=== PATIENT | female | born 1950 | race Caucasian/White ===

== ENCOUNTER 2017-02-27 18:14 | Emergency (ER) | payer OTHER ==
[2017-02-27 18:30] VITALS: BP 136/85
--- NOTE | 2017-02-27 18:31 | UC ---
Skin Complaint HPI - HPI Summary HPI Summary: Tick on her left inner thigh was likely attached 24-36 hours Tick removed yesterday intact--some bleeding - History of Current Complaint Chief Complaint: UCSkin Time Seen by Provider: 02/27/17 18:25 Stated Complaint: TICK Hx Obtained From: Patient ?: No Onset/Duration: Sudden Onset, Lasting Days, Still Present Skin Exposure Onset/Duration: Days Ago - 1-2 Timing: Constant Onset Severity: Mild Current Severity: None Pain Intensity: 0 Pain Scale Used: 0-10 Numeric Location: Discrete - inner left thigh Aggravating: Nothing Alleviating: Nothing Associated Signs & Symptoms: Positive: Negative Related History: Insect Bite/Sting - Allergy/Home Medications Allergies/Adverse Reactions: Allergies Allergy/AdvReac Type Severity Reaction Status Date / Time latex Allergy Severe Rash Uncoded 04/09/15 15:45 Home Medications: Home Medications [place] 150 mg PO 02/27/17 [History] Review of Systems Constitutional: Negative Skin: Negative Eyes: Negative ENT: Negative Respiratory: Negative Cardiovascular: Negative Gastrointestinal: Negative Genitourinary: Negative Motor: Negative Neurovascular: Negative Musculoskeletal: Negative Neurological: Negative Psychological: Negative All Other Systems Reviewed And Are Negative: Yes PMH/Surg Hx/FS Hx/Imm Hx Previously Healthy: Yes - Surgical History Surgical History: Yes Surgery Procedure, Year, and Place: Lumpectomy - Family History Known Family History: Positive: None Family History: no cardiovascular issues reported in family lineage - Social History Occupation: Retired Lives: With Family Alcohol Use: Rare Substance Use Type: None Smoking Status (MU): Never Smoked Tobacco Physical Exam Triage Information Reviewed: Yes Appearance: Well-Appearing, No Pain Distress, Well-Nourished Vital Signs: Initial Vital Signs Temp 99.1 F 02/27/17 18:16 Pulse 72 02/27/17 18:16 Resp 18 02/27/17 18:16 BP 136/85 02/27/17 18:16 Pulse Ox 98 02/27/17 18:16 Vital Signs Reviewed: Yes Eye Exam: Normal Eyes: Positive: Conjunctiva Clear ENT Exam: Normal ENT: Positive: Normal ENT inspection, Hearing grossly normal, Pharynx normal, TMs normal. Negative: Nasal congestion, Nasal drainage, Tonsillar swelling, Tonsillar exudate, Trismus, Muffled/hoarse voice Dental Exam: Normal Neck exam: Normal Neck: Positive: Supple, Nontender Respiratory Exam: Normal Respiratory: Positive: Chest non-tender, No respiratory distress, No accessory muscle use Cardiovascular Exam: Normal Cardiovascular: Positive: RRR, No Murmur, Pulses Normal, Brisk Capillary Refill Musculoskeletal Exam: Normal Musculoskeletal: Positive: Strength Intact, ROM Intact, No Edema Neurological Exam: Normal Neurological: Positive: Alert, Muscle Tone Normal Psychological Exam: Normal Skin Exam: Other Skin: Positive: Other - erythema at Tick site inner left thigh Course/Dx - Course Course Of Treatment: Doxycycline, soap and water wash, follow with pcp prn - Differential Diagnoses - Skin Complaint Differential Diagnoses: Contact Dermatitis, Impetigo, Tick Born Illness - Diagnoses Provider Diagnoses: Tick bite Lyme PEP Discharge - Discharge Plan Condition: Stable Disposition: HOME Prescriptions: DOXYcycline CAP(*) [DOXYcycline 100MG CAP(*)] 200 mg PO DAILY #2 cap Patient Education Materials: Doxycycline (By mouth), Tick Bite (ED) Referrals: Trey Mathew MD [Primary Care Provider] - If Needed
== END 2017-02-27 18:37 | disposition home or self-care (01) ==
LOC: UCEAST 18:14
DX: S70.362A Insect bite (nonvenomous), left thigh, initial encounter (principal); W57.XXXA Bitten or stung by nonvenomous insect and other nonvenomous arthropods, initial encounter; Z91.040 Latex allergy status
CPT/HCPCS: 99212; G0463

== ENCOUNTER 2017-10-25 16:18 | Emergency (ER) | payer OTHER ==
[2017-10-25 16:56] VITALS: BP 129/86
--- NOTE | 2017-10-25 17:39 | UC ---
UC General HPI - HPI Summary HPI Summary: 67 y/o female with concerns after accupuncturist told her she may have B vitamin deficiency due to fissures noted on her tongue. Patient started to take B vitamins over the counter, but is concerned about dosage. ALso, had 3 episodes of loose stool in beginning of august, which resolved, no abdominal pain, cramping, bloating, also noted 3 episodes of loose stool, one every other day for past 3-4 days, no abdominal pain, cramping, blaoting, no N/V. no PMH. + partial vegan diet- no dairy, + fish only meat - History of Current Complaint Chief Complaint: UCGI Stated Complaint: LOOSE STOOL Time Seen by Provider: 10/25/17 17:19 Hx Obtained From: Patient Onset/Duration: Gradual Onset, Lasting Weeks Onset Severity: Mild Current Severity: Mild Pain Intensity: 0 - Allergy/Home Medications Allergies/Adverse Reactions: Allergies Allergy/AdvReac Type Severity Reaction Status Date / Time latex Allergy Severe Rash Uncoded 10/25/17 16:56 Home Medications: Home Medications NK [No Home Medications Reported] 10/25/17 [History Confirmed 10/25/17] PMH/Surg Hx/FS Hx/Imm Hx Previously Healthy: Yes - Surgical History Surgical History: Yes Surgery Procedure, Year, and Place: Lumpectomy - Family History Known Family History: Positive: None Family History: no cardiovascular issues reported in family lineage - Social History Alcohol Use: Rare Substance Use Type: None Smoking Status (MU): Never Smoked Tobacco Review of Systems Gastrointestinal: Diarrhea Neurological: Other Is Patient Immunocompromised?: No All Other Systems Reviewed And Are Negative: Yes Physical Exam Triage Information Reviewed: Yes Appearance: Well-Appearing, No Pain Distress, Well-Nourished, Ill-Appearing Vital Signs: Initial Vital Signs Temp 98.3 F 10/25/17 16:51 Pulse 74 10/25/17 16:51 Resp 18 10/25/17 16:51 BP 129/86 10/25/17 16:51 Pulse Ox 98 10/25/17 16:51 Vital Signs Reviewed: Yes Eyes: Positive: Conjunctiva Clear, Other: - mucous membranes light pink ENT: Positive: Pharynx normal, Other - tongue with small <5mm fissures noted anteriorly. mucous membranes light pink, moist. Neck: Positive: Supple, Nontender Psychological Exam: Normal Skin Exam: Normal Skin: Positive: Other - good skin turgor, mucous membranes moist. Course/Dx - Course Course Of Treatment: Reassured patient she could take over the counter vitamins as directed on bottle, follow up with primary physician next week for blood work , eval. - Differential Dx - Multi-Symptom Differential Diagnoses: Other Provider Diagnoses: Possible Anemia Discharge - Discharge Plan Condition: Good Disposition: HOME Patient Education Materials: Iron Rich Diet (ED), Anemia (ED), Vitamin B12 Deficiency (ED) Referrals: No Primary Care Phys,NOPCP [Primary Care Provider] - Additional Instructions: - FOllow up with primary physician with regards to evaluation for iron, B vitamin deficiency - Increase fluid intake, continue to monitor loose stools, address with primary physician
== END 2017-10-25 17:55 | disposition home or self-care (01) ==
LOC: UCEAST 16:18
DX: K14.5 Plicated tongue (principal); R19.7 Diarrhea, unspecified; Z91.040 Latex allergy status
CPT/HCPCS: 99211; G0463

== ENCOUNTER 2018-02-09 11:30 | Emergency (ER) | payer OTHER ==
[2018-02-09 11:44] VITALS: BP 142/97
--- NOTE | 2018-02-09 11:59 | UC ---
Skin Complaint HPI - HPI Summary HPI Summary: 68 yo female presents with ? tick bite to right forearm first noticed this morning. She tells me that she did a lot of gardening yesterday and didnt notice anything yesterday. Denies fever, chills, myalgias. - History of Current Complaint Chief Complaint: UCGeneralIllness Time Seen by Provider: 02/09/18 11:43 Stated Complaint: TICK BITE Hx Obtained From: Patient Onset/Duration: Sudden Onset Current Severity: None Pain Intensity: 0 - Allergy/Home Medications Allergies/Adverse Reactions: Allergies Allergy/AdvReac Type Severity Reaction Status Date / Time latex Allergy Severe Rash Uncoded 02/09/18 11:44 Review of Systems Constitutional: Negative Skin: Other - ?tick bite right forearm Respiratory: Negative Cardiovascular: Negative Neurovascular: Negative Neurological: Negative Psychological: Negative All Other Systems Reviewed And Are Negative: Yes PMH/Surg Hx/FS Hx/Imm Hx - Additional Past Medical History Additional PMH: None Previously Healthy: Yes - Surgical History Surgical History: Yes Surgery Procedure, Year, and Place: Lumpectomy - Family History Known Family History: Positive: None Family History: no cardiovascular issues reported in family lineage - Social History Occupation: Retired Lives: With Family Alcohol Use: Rare Substance Use Type: None Smoking Status (MU): Never Smoked Tobacco - Immunization History Most Recent Tetanus Shot: UNK Physical Exam - Summary Physical Exam Summary: GENERAL: NAD. WDWN. No pain distress. SKIN: Right forearm: 1mm abrasion on dorsal aspect with scab. No insect appreciated. No streaking, bleeding, or drainage. NECK: Supple. Nontender. No lymphadenopathy. CHEST: No accessory muscle use. Breathing comfortably and in no distress. CV: RRR. Without m/r/g. NEURO: Alert. CN II-XII grossly intact. PSYCH: Age appropriate behavior. Triage Information Reviewed: Yes Vital Signs: Initial Vital Signs Temp 98 F 02/09/18 11:40 Pulse 77 02/09/18 11:40 Resp 18 02/09/18 11:40 BP 142/97 02/09/18 11:40 Pulse Ox 99 02/09/18 11:40 Course/Dx - Course Course Of Treatment: Abrasion to right forearm - bandaid applied - Diagnoses Provider Diagnoses: abrasion right forearm Discharge - Sign-Out/Discharge Documenting (check all that apply): Discharge/Admit/Transfer - Discharge Plan Condition: Stable Disposition: HOME Patient Education Materials: Abrasion (ED) Referrals: Zohreh Vu MD [Primary Care Provider] - Additional Instructions: If you develop a fever, shortness of breath, chest pain, new or worsening symptoms - please call your PCP or go to the ED. Your blood pressure was high at todays visit. Please see your primary provider within 4 weeks for recheck and re-evaluation. - Billing Disposition and Condition Condition: STABLE Disposition: HOME
== END 2018-02-09 12:10 | disposition home or self-care (01) ==
LOC: UCEAST 11:30
DX: S50.811A Abrasion of right forearm, initial encounter (principal); W57.XXXA Bitten or stung by nonvenomous insect and other nonvenomous arthropods, initial encounter; Y93.H2 Activity, gardening and landscaping; Y92.096 Garden or yard of other non-institutional residence as the place of occurrence of the external cause; Z91.040 Latex allergy status
CPT/HCPCS: 99211; G0463

== ENCOUNTER 2018-02-14 11:14 | Emergency (ER) | payer OTHER ==
[2018-02-14 12:05] LABS: ABS Basophils 0 10^3/ul (0-0.2); ABS Eosinophils 0 10^3/ul (0-0.6); ABS Lymphocytes 0.7 10^3/ul (1.0-4.8); ABS Monocytes 0.3 10^3/ul (0-0.8); ABS Neutrophils 2.1 10^3/ul (1.5-7.7); ABS Nucleated RBC 0 10^3/ul; Eosinophil % 0.3 % (0-6); Hematocrit 43 % (35-47); Hemoglobin 14.6 g/dl (12.0-16.0); Lymphocyte % 23.1 % (25-47); Mean Corpuscular HGB Conc 34 g/dl (31-36); Mean Corpuscular Hemoglobin 31 pg (27-31); Mean Corpuscular Volume 92 fL (80-97); Mean Platelet Volume 9.5 um3 (7.4-10.4); Nucleated Red Blood Cells % 0.1; Platelet Count 115 10^3/ul (150-450); Red Blood Count 4.73 10^6/ul (4.0-5.4); Red Cell Distribution Width 14 % (10.5-15); White Blood Count 3.2 10^3/ul (3.5-10.8)
[2018-02-14 12:19] LABS: INR 0.88 (0.77-1.02)
[2018-02-14 12:22] LABS: EGFR Non-African American 83.5 (>60)
--- NOTE | 2018-02-14 12:23 | RAD ---
INDICATION: Hypertension COMPARISON: February 20, 2016 TECHNIQUE: PA and lateral dual-energy views were obtained. FINDINGS: Bones/Soft Tissues: There are no acute bony findings. Cardiomediastinal: The cardiomediastinal silhouette is normal. Lungs: There are no infiltrates. There is hyperinflation Pleura: There are no pleural effusions. Other: None IMPRESSION: HYPERINFLATION. NO ACTIVE DISEASE.
[2018-02-14 12:50] VITALS: BP 128/83
--- NOTE | 2018-02-14 14:25 | ED ---
Kaitlin Kaur Gabriel scribyudith for Greg Dan on 02/14/18 at 1151 . Hypertension - HPI Summary HPI Summary: This patient is a 68 year old F presenting to [facility] accompanied by her with a chief complaint of elevated blood pressure that has been intermittent for the last week. Pt has a hx of a slightly enlarged aorta and was told to monitor blood pressure. The patient rates the pain 0/10 in severity. Patient denies CP, dizziness, blurred vision, SOB, RUIZ, ABD pain, and n/v/d. Pt is not on antihypertensive. She has heart echo scheduled on 02-25-18. - History of Current Complaint Chief Complaint: EDHypertension Stated Complaint: BLOOD PRESSURE ISSUE Time Seen by Provider: 02/14/18 11:40 Hx Obtained From: Patient Onset/Duration: Started Weeks Ago, Still Present Timing: Intermittent Associated Signs & Symptoms: Negative - CP, dizziness, blurred vision, SOB, RUIZ, ABD pain, and n/v/d - Allergies/Home Medications Allergies/Adverse Reactions: Allergies Allergy/AdvReac Type Severity Reaction Status Date / Time latex Allergy Severe Rash Verified 02/14/18 11:24 PMH/Surg Hx/FS Hx/Imm Hx Endocrine/Hematology History: Denies: Hx Diabetes, Hx Thyroid Disease Cardiovascular History: Reports: Other Cardiovascular Problems/Disorders - slightly enlarged aorta Denies: Hx Auto Implanted Cardiovert Defib, Hx Hypertension Respiratory History: Denies: Hx Asthma, Hx Chronic Obstructive Pulmonary Disease (COPD) GI History: Denies: Hx Ulcer History: Denies: Hx Renal Disease Neurological History: Denies: Hx CVA, Hx Dementia - Cancer History Cancer Type, Location and Year: Left breast - Surgical History Surgery Procedure, Year, and Place: Lumpectomy Infectious Disease History: No Infectious Disease History: Denies: Hx Hepatitis, Hx Human Immunodeficiency Virus (HIV), History Other Infectious Disease, Traveled Outside the [place] in Last 30 Days - Family History Known Family History: Positive: None Negative: Cardiac Disease, Hypertension Family History: no cardiovascular issues reported in family lineage - Social History Lives: With Family Alcohol Use: Rare Substance Use Type: Reports: None Hx Tobacco Use: No Smoking Status (MU): Never Smoked Tobacco Review of Systems Negative: Blurred Vision Negative: Chest Pain Negative: Shortness Of Breath Negative: Abdominal Pain, Vomiting, Diarrhea, Nausea Neurological: Negative - dizziness Negative: Headache All Other Systems Reviewed And Are Negative: Yes Physical Exam - Summary Physical Exam Summary: Appearance: Well appearing, no pain distress Skin: warm, dry, reflects adequate perfusion Head/face: normal Eyes: EOMI, [place] ENT: normal Neck: supple, non-tender Respiratory: CTA, breath sounds present Cardiovascular: RRR, pulses symmetrical Abdomen: non-tender, soft Bowel: present Musculoskeletal: normal, strength/ROM intact Neuro: normal, sensory motor intact, A&Ox3 Triage Information Reviewed: Yes Vital Signs On Initial Exam: Initial Vitals Temp Pulse Resp BP Pulse Ox 97 F 81 16 141/95 98 02/14/18 11:27 02/14/18 11:27 02/14/18 11:27 02/14/18 11:27 02/14/18 11:27 Vital Signs Reviewed: Yes Diagnostics - Vital Signs Vital Signs Temp Pulse Resp BP Pulse Ox 02/14/18 11:27 97 F 81 16 141/95 98 - Laboratory Lab Results: Lab Results 02/14/18 02/14/18 02/14/18 Range/Units 11:56 11:56 11:56 WBC 3.2 L (3.5-10.8) 10^3/ul RBC 4.73 (4.0-5.4) 10^6/ul Hgb 14.6 (12.0-16.0) g/dl Hct 43 (35-47) % MCV 92 (80-97) fL MCH 31 (27-31) pg MCHC 34 (31-36) g/dl RDW 14 (10.5-15) % Plt Count 115 L (150-450) 10^3/ul MPV 9.5 (7.4-10.4) um3 Neut % (Auto) 66.2 (38-83) % Lymph % (Auto) 23.1 L (25-47) % [place] % (Auto) 9.4 H (0-7) % Eos % (Auto) 0.3 (0-6) % Baso % (Auto) 1.0 (0-2) % Absolute Neuts (auto) 2.1 (1.5-7.7) 10^3/ul Absolute Lymphs (auto) 0.7 L (1.0-4.8) 10^3/ul Absolute Monos (auto) 0.3 (0-0.8) 10^3/ul Absolute Eos (auto) 0 (0-0.6) 10^3/ul Absolute Basos (auto) 0 (0-0.2) 10^3/ul Absolute Nucleated RBC 0 10^3/ul Nucleated RBC % 0.1 INR (Anticoag Therapy) 0.88 (0.77-1.02) APTT 31.1 (26.0-36.3) seconds Sodium 139 (139-145) mmol/L Potassium 4.0 (3.5-5.0) mmol/L Chloride 107 (101-111) mmol/L Carbon Dioxide 29 (22-32) mmol/L Anion Gap 3 (2-11) mmol/L BUN 26 H (6-24) mg/dL Creatinine 0.70 (0.51-0.95) mg/dL Est GFR ( Amer) 107.3 (>60) Est GFR (Non-Af Amer) 83.5 (>60) BUN/Creatinine Ratio 37.1 H (8-20) Glucose 93 (70-100) mg/dL Calcium 9.5 (8.6-10.3) mg/dL Total Bilirubin 1.30 H (0.2-1.0) mg/dL AST 36 (13-39) U/L ALT 30 (7-52) U/L Alkaline Phosphatase 59 (34-104) U/L Troponin I 0.00 (<0.04) ng/mL Total Protein 6.9 (6.4-8.9) g/dL Albumin 4.4 (3.2-5.2) g/dL Globulin 2.5 (2-4) g/dL Albumin/Globulin Ratio 1.8 (1-3) Result Diagrams: 02/14/18 11:56 02/14/18 11:56 Lab Statement: Any lab studies that have been ordered have been reviewed, and results considered in the medical decision making process. - Radiology CXR Radiology Interpretation Completed By: Radiologist - HYPERINFLATION. NO ACTIVE DISEASE. ED physician has reviewed this radiology report. - EKG 1159 Cardiac Rate: NL EKG Rhythm: Sinus Rhythm - at 69 BPM EKG Interpretation: no acute changes Hypertension Course/Dx - Course Assessment/Plan: This patient is a 68 year old F presenting to [facility] accompanied by her with a chief complaint of elevated blood pressure that has been intermittent for the last week. Pt has a hx of a slightly enlarged aorta and was told to monitor blood pressure. The patient rates the pain 0/10 in severity. Patient denies CP, dizziness, blurred vision, SOB, RUIZ, ABD pain, and n/v/d. Pt is not on antihypertensive. She has heart echo scheduled on 02-25-18. An EKG reveals NSR. CXR reveals, per radiologist, HYPERINFLATION. NO ACTIVE DISEASE. ED physician has reviewed this radiology report. Dx hypertension. Blood work obtained. Patient will be discharged and follow up at her echo appointment. The patient is agreeable with this plan. - Diagnoses Provider Diagnoses: Pre-hypertension, Hypertension Discharge - Sign-Out/Discharge Documenting (check all that apply): Discharge/Admit/Transfer - Discharge Plan Condition: Stable Disposition: HOME Patient Education Materials: Hypertension (ED) Referrals: Zohreh Vu MD [Primary Care Provider] - 3 Days Additional Instructions: Please keep your appointment for your cardiac echo. RETURN TO THE ER FOR ANY NEW OR WORSENING SYMPTOMS - Billing Disposition and Condition Condition: STABLE Disposition: HOME The documentation as recorded by the Kaitlin roth Gabriel accurately reflects the service I personally performed and the decisions made by , Greg Dan.
== END 2018-02-14 12:49 | disposition home or self-care (01) ==
LOC: ED 11:14
DX: I10 Essential (primary) hypertension (principal); R91.8 Other nonspecific abnormal finding of lung field
CPT/HCPCS: 36415; 71046; 80053; 84484; 85025; 85610; 85730; 93005; 99282